=== PATIENT | female | born 1985 | race Caucasian/White ===

== ENCOUNTER 2016-08-29 23:21 | Emergency (ER) | payer MEDICAID ==
[~2016-08-29] VITALS: Ht 160 cm; Wt 110.0 kg
[~2016-08-29 23:21] MED LIST: LEVO100T PO
[2016-08-30 00:47] VITALS: BP 93/45
[2016-08-30 01:01] LABS: ASPARTATE AMINO TRANSFERASE 17 U/L (15-37); BLOOD UREA NITROGEN 17 mg/dL (7-18)
== END 2016-08-30 01:33 | disposition home or self-care (01) ==
LOC: ED 23:59
DX: O26.891 Other specified pregnancy related conditions, first trimester (principal); F17.210 Nicotine dependence, cigarettes, uncomplicated; F12.10 Cannabis abuse, uncomplicated; Z3A.01 Less than 8 weeks gestation of pregnancy; Z90.49 Acquired absence of other specified parts of digestive tract
CPT/HCPCS: 36415; 76801; 80053; 81001; 84702; 85025; 86901; 93005

== ENCOUNTER 2016-09-25 21:08 | Emergency (ER) | payer MEDICAID ==
[~2016-09-25] VITALS: Ht 160 cm; Wt 121.1 kg
[2016-09-25 21:13] VITALS: BP 160/95
== END 2016-09-26 07:08 | disposition home or self-care (01) ==
LOC: ED 09-26 00:45
DX: O26.891 Other specified pregnancy related conditions, first trimester (principal); M79.671 Pain in right foot; Z3A.11 11 weeks gestation of pregnancy
CPT/HCPCS: 99284

== ENCOUNTER 2016-11-18 12:02 | Emergency (ER) | payer MEDICAID ==
[~2016-11-18] VITALS: Ht 157.5 cm; Wt 125.3 kg
[2016-11-18 13:22] LABS: HEMATOCRIT 34.5 % (34.6-47.8); HEMOGLOBIN 11.6 g/dL (11.7-16.4); WHITE BLOOD COUNT 12.5 x10^3/uL (3.4-10)
[2016-11-18 13:39] LABS: ASPARTATE AMINO TRANSFERASE 18 U/L (15-37); BLOOD UREA NITROGEN 8 mg/dL (7-18)
[2016-11-18 15:55] VITALS: BP 135/85
== END 2016-11-18 15:56 | disposition home or self-care (01) ==
LOC: ED 12:37
DX: O26.891 Other specified pregnancy related conditions, first trimester (principal); Z3A.10 10 weeks gestation of pregnancy; R31.29 Other microscopic hematuria; O99.331 Smoking (tobacco) complicating pregnancy, first trimester; F17.200 Nicotine dependence, unspecified, uncomplicated; Z90.49 Acquired absence of other specified parts of digestive tract
CPT/HCPCS: 36415; 76815; 80053; 81001; 85025; 87086; 99285

== ENCOUNTER 2016-11-28 17:56 | Observation (INO) | payer MEDICAID ==
[~2016-11-28] VITALS: Ht 157.5 cm; Wt 126.4 kg
[2016-11-28 18:35] VITALS: BP 132/75
[2016-11-28 19:04] LABS: HEMATOCRIT 34.4 % (34.6-47.8); HEMOGLOBIN 11.5 g/dL (11.7-16.4); WHITE BLOOD COUNT 14.1 x10^3/uL (3.4-10)
[2016-11-28 19:22] LABS: PATH.CAST-FLAG NOT PRESENT; SPERM-FLAG NOT PRESENT; SRC-FLAG NOT PRESENT; XTAL-FLAG NOT PRESENT; YLC-FLAG NOT PRESENT
[2016-11-28] MEDS ORDERED: LACTATED RINGERS 1,000 ML IVBOLUS ONE (20:00)
[2016-11-28] MEDS ORDERED: MORPHINE SULFATE 4 MG/ML, 1ML IVPush PRN (20:00)
[2016-11-28] MEDS ORDERED: morphine SULFATE 10 MG/ML, 1ML ONE (20:01)
== END 2016-11-29 07:25 | disposition home or self-care (01) ==
LOC: LDOP 17:56 → LDIP 11-29
PROVIDERS: ADMIT Obstetrics & Gynecology; ATTEND Obstetrics & Gynecology
DX: O26.892 Other specified pregnancy related conditions, second trimester (principal); R10.9 Unspecified abdominal pain; R31.9 Hematuria, unspecified; Z3A.20 20 weeks gestation of pregnancy
CPT/HCPCS: 36415; 76770; 81001; 85025; 87086; 96361; 96374; G0378; J7120; 96360

== ENCOUNTER 2017-03-30 00:34 | Outpatient (CLI) | payer MEDICAID | END 2017-03-30 00:42 | disposition home or self-care (01) | LOC: LDOP 00:34 | PROVIDERS: ATTEND Obstetrics & Gynecology | DX: Z02.9 Encounter for administrative examinations, unspecified (principal) ==

== ENCOUNTER 2017-06-27 14:14 | Emergency (ER) | payer MEDICAID ==
[~2017-06-27] VITALS: Ht 157.5 cm; Wt 123.6 kg
[2017-06-27 14:15] VITALS: BP 110/75
[2017-06-27 14:46] LABS: BASOPHILS # (AUTO) 0.02 x10^3/uL (0-0.1); BASOPHILS % (AUTO) 0 % (0-1); EOSINOPHILS % (AUTO) 0 % (1-7); LYMPHOCYTES # (AUTO) 0.81 x10^3/uL (1-3.4); LYMPHOCYTES % (AUTO) 7 % (22-44); MD NO; MEAN CORPUSCULAR HEMOGLOBIN 27.4 pg (27.0-34.8); MEAN CORPUSCULAR HGB CONC 32.7 g/dL (32.4-35.8); MEAN CORPUSCULAR VOLUME 83.9 fL (80-100); MEAN PLATELET VOLUME 7.2 fL (7.4-10.4); MONOCYTES # (AUTO) 0.42 x10^3/uL (0.2-0.8); MONOCYTES % (AUTO) 4 % (2-9); NEUTROPHILS % (AUTO) 89 % (42-75); PLATELET COUNT 232 x10^3/uL (130-400); RED CELL DISTRIBUTION WIDTH 14.7 % (9.6-15.2)
[2017-06-27 15:01] LABS: ALBUMIN 3.3 g/dL (3.4-5.0); ANION GAP 6 mmol/L (5-15); CALCIUM 8.7 mg/dL (8.5-10.1); CHLORIDE 109 mmol/L (98-107)
[2017-06-27] MEDS ORDERED: DOXYCYCLINE 100MG TABLET PO ONE (16:00)
[2017-06-27] MEDS ORDERED: DOXYCYCLINE 100MG TABLET ONE (16:06)
== END 2017-06-27 17:25 | disposition home or self-care (01) ==
LOC: ED 16:53
DX: L03.115 Cellulitis of right lower limb (principal); Z90.49 Acquired absence of other specified parts of digestive tract
CPT/HCPCS: 36415; 80048; 82040; 85025; 99284

== ENCOUNTER 2017-12-15 08:07 | Emergency (ER) | payer MEDICAID ==
[~2017-12-15] VITALS: Ht 157.5 cm; Wt 118.5 kg
[2017-12-15] MEDS ORDERED: MULT-6 PO (08:28)
[2017-12-15] MEDS ORDERED: ALBUTEROL/IPRATROPIUM 2.5MG/0.5MG, 3 ML ONE (08:58)
[2017-12-15] MEDS ORDERED: ALBUTEROL/IPRATROPIUM 2.5MG/0.5MG, 3 ML NPPB SCH (09:00)
[2017-12-15] MEDS ORDERED: AZITHROMYCIN 250 MG TABLET PO ONE (09:30)
[2017-12-15] MEDS ORDERED: AZITHROMYCIN 250 MG TABLET ONE (09:38)
[2017-12-15 09:55] LABS: BASOPHILS # (AUTO) 0.02 x10^3/uL (0-0.1); BASOPHILS % (AUTO) 0 % (0-1); EOSINOPHILS # (AUTO) 0.13 x10^3/uL (0-0.4); EOSINOPHILS % (AUTO) 1 % (1-7); LYMPHOCYTES # (AUTO) 1.33 x10^3/uL (1-3.4); LYMPHOCYTES % (AUTO) 8 % (22-44); MD NO; MEAN CORPUSCULAR HGB CONC 34.1 g/dL (32.4-35.8); MEAN CORPUSCULAR VOLUME 85.1 fL (80-100); MEAN PLATELET VOLUME 7.5 fL (7.4-10.4); MONOCYTES # (AUTO) 0.49 x10^3/uL (0.2-0.8); MONOCYTES % (AUTO) 3 % (2-9); NEUTROPHILS # (AUTO) 14.48 x10^3/uL (1.8-6.8); NEUTROPHILS % (AUTO) 88 % (42-75); PLATELET COUNT 265 x10^3/uL (130-400); RED BLOOD COUNT 4.78 x10^6/uL (3.82-5.3); RED CELL DISTRIBUTION WIDTH 14.4 % (9.6-15.2)
[2017-12-15] MEDS ORDERED: ALBUTEROL SULFATE 2.5 MG/3 ML NPPB ONE (10:00)
[2017-12-15 10:05] LABS: ALBUMIN 3.5 g/dL (3.4-5.0); ANION GAP 9 mmol/L (5-15); CALCIUM 8.4 mg/dL (8.5-10.1); CHLORIDE 108 mmol/L (98-107); CREATININE 0.86 mg/dL (0.55-1.02)
[2017-12-15] MEDS ORDERED: CEFTRIAXONE 1,000 MG IM ONE (11:00)
[2017-12-15 11:14] VITALS: BP 139/87
[2017-12-15] MEDS ORDERED: CEFTRIAXONE 1,000 MG ONE (11:15)
== END 2017-12-15 11:24 | disposition home or self-care (01) ==
LOC: ED 11:15
DX: J45.41 Moderate persistent asthma with (acute) exacerbation (principal); J15.9 Unspecified bacterial pneumonia
CPT/HCPCS: 36415; 71046; 80048; 82040; 83605; 84145; 85025; 87040; 93005; 94640; 96372; 99285; J0696; J7512; J7620

== ENCOUNTER 2018-02-14 10:01 | Emergency (ER) | payer SELFPAY ==
[~2018-02-14] VITALS: Ht 157.5 cm; Wt 119.2 kg
[~2018-02-14 10:01] MED LIST changes: +MULT-6 PO
[2018-02-14] MEDS ORDERED: SODIUM CHLORIDE 0.9% 1,000ML IV ONE (11:00)
[2018-02-14 11:14] LABS: MICROSCOPIC INDICATED
[2018-02-14 11:18] LABS: CULTURE INDICATED? NO
[2018-02-14 11:53] LABS: MEAN CORPUSCULAR HEMOGLOBIN 28.9 pg (27.0-34.8); MEAN CORPUSCULAR HGB CONC 33.6 g/dL (32.4-35.8); MEAN CORPUSCULAR VOLUME 85.8 fL (80-100); MEAN PLATELET VOLUME 7.7 fL (7.4-10.4); PLATELET COUNT 275 x10^3/uL (130-400); RED BLOOD COUNT 4.88 x10^6/uL (3.82-5.3); RED CELL DISTRIBUTION WIDTH 14.8 % (9.6-15.2)
[2018-02-14 12:04] LABS: HCG UR SG 1.019 (1.003-1.030)
[2018-02-14 12:06] LABS: ALANINE AMINOTRANSFERASE 22 U/L (12-78); ALBUMIN 3.8 g/dL (3.4-5.0); ANION GAP 8 mmol/L (5-15); CALCIUM 8.2 mg/dL (8.5-10.1); CHLORIDE 109 mmol/L (98-107); CREATININE 0.93 mg/dL (0.55-1.02)
[2018-02-14 12:08] LABS: ALKALINE PHOSPHATASE 72 U/L (45-117); BILIRUBIN,TOTAL 0.7 mg/dL (0.2-1.0); TOTAL PROTEIN 7.2 g/dL (6.4-8.2)
[2018-02-14 12:38] LABS: MD YES
[2018-02-14 12:40] LABS: <PLATELET ESTIMATE> ADEQUATE; <PLT MORPHOLOGY> NORMAL PLT MORPH; <RBC MORPHOLOGY> NORMAL; BAND#(MANUAL) 3.21 x10^3/uL; BANDS%(MANUAL) 15 % (0-7); EOS#(MANUAL) 0.21 x10^3/uL (0.0-0.4); EOS% (MANUAL) 1 % (1-7); LYMPH#(MANUAL) 1.07 x10^3/uL (1-3.4); LYMPHS% (MANUAL) 5 % (22-44); METAMYELOCYTES# (MANUAL) 0.43 x10^3/uL (0-0); METAMYELOCYTES% (MANUAL) 2 % (0-1); MONOS#(MANUAL) 0.64 x10^3/uL (0.3-2.7); MONOS% (MANUAL) 3 % (2-9); SEG#(MANUAL) 15.84 x10^3/uL (1.8-6.8); SEGS% (MANUAL) 74 % (42-75)
[2018-02-14] MEDS ORDERED: AMPICILLIN/SULBACTAM 3 GM in SODIUM CHLORIDE 0.9% 100 ML IV ONE (13:00)
[2018-02-14 13:27] VITALS: BP 123/78
== END 2018-02-14 15:23 | disposition home or self-care (01) ==
LOC: ED 12:39
DX: A41.9 Sepsis, unspecified organism (principal); L03.115 Cellulitis of right lower limb; R31.29 Other microscopic hematuria; J45.909 Unspecified asthma, uncomplicated; F41.1 Generalized anxiety disorder; F17.200 Nicotine dependence, unspecified, uncomplicated; Z90.89 Acquired absence of other organs; Z90.721 Acquired absence of ovaries, unilateral; Z86.39 Personal history of other endocrine, nutritional and metabolic disease; Z91.040 Latex allergy status
CPT/HCPCS: 36415; 74018; 74176; 76770; 80053; 81001; 81025; 83605; 84145; 85025; 87040; 96365; 99291; J0295; J7030

== ENCOUNTER 2018-08-05 17:39 | Emergency (ER) | payer MEDICAID ==
[~2018-08-05] VITALS: Ht 167.6 cm; Wt 122.9 kg
[2018-08-05] MEDS ORDERED: ACETAMINOPHEN 500 MG TABLET PO ONE ×2 (18:00→19:00)
[2018-08-05] MEDS ORDERED: ONDANSETRON ODT 8 MG PO ONE (18:00)
[2018-08-05 18:25] LABS: BASOPHILS # (AUTO) 0.02 x10^3/uL (0-0.1); BASOPHILS % (AUTO) 0 % (0-1); EOSINOPHILS # (AUTO) 0.08 x10^3/uL (0-0.4); EOSINOPHILS % (AUTO) 1 % (1-7); LYMPHOCYTES # (AUTO) 0.93 x10^3/uL (1-3.4); LYMPHOCYTES % (AUTO) 6 % (22-44); MD NO; MEAN CORPUSCULAR HEMOGLOBIN 29.1 pg (27.0-34.8); MEAN CORPUSCULAR VOLUME 85.6 fL (80-100); MEAN PLATELET VOLUME 7.6 fL (7.4-10.4); MONOCYTES # (AUTO) 0.11 x10^3/uL (0.2-0.8); MONOCYTES % (AUTO) 1 % (2-9); NEUTROPHILS # (AUTO) 14.75 x10^3/uL (1.8-6.8); NEUTROPHILS % (AUTO) 93 % (42-75); PLATELET COUNT 290 x10^3/uL (130-400); RED CELL DISTRIBUTION WIDTH 13.9 % (9.6-15.2)
--- NOTE | 2018-08-05 18:25 | NUR ---
EVENT DECORATOR: PT AMBULATORY TO ROOM FROM LOBBY
[2018-08-05 18:29] LABS: ALBUMIN 3.7 g/dL (3.4-5.0); ANION GAP 9 mmol/L (5-15); CALCIUM 8.9 mg/dL (8.5-10.1); CHLORIDE 109 mmol/L (98-107); CREATININE 0.92 mg/dL (0.55-1.02)
--- NOTE | 2018-08-05 18:33 | NUR ---
39 Y/O FEMALE PRESENTS TO ED WITH C/O "I HAVE CELLULITIS ON MY RIGHT LEG. I JUST NOTICED IT A COUPLE HOURS AGO. I GOT BIT BY SOMETHING TWO DAYS AGO." PT RESTING ON GURNEY. PT NOT A VERY GOOD HISTORIAN. PT PLACED ON CONT PULSE OX, NIBP. NO C/O N/V/D, TRAUMA, SYNCOPE
[2018-08-05] MEDS ORDERED: SYNTHROID (18:44)
[2018-08-05] MEDS ORDERED: SODIUM CHLORIDE 0.9% 1,000ML IVBOLUS ONE (19:00)
[2018-08-05] MEDS ORDERED: KETOROLAC 30 MG/1 ML IVPush ONE (19:00)
[2018-08-05] MEDS ORDERED: SODIUM CHLORIDE FLUSH 10ML SYR IVF ONE (19:00)
[2018-08-05] MEDS ORDERED: VANCOMYCIN PER PHARMACY IV ONE (19:00)
[2018-08-05] MEDS ORDERED: VANCOMYCIN 2,000 MG in SODIUM CHLORIDE 0.9% 500 ML IV ONE (19:00)
--- NOTE | 2018-08-05 19:02 | NUR ---
US COMPLETED. BEDSIDE REPORT TO SHAYNE CABALLERO.
[2018-08-05] MEDS ORDERED: KETOROLAC 30 MG/1 ML ONE (19:22)
[2018-08-05] MEDS ORDERED: ONDANSETRON ODT 8 MG ONE (19:22)
[2018-08-05] MEDS ORDERED: ACETAMINOPHEN 500 MG TABLET ONE (19:22)
[2018-08-05 19:50] VITALS: BP 113/61
--- NOTE | 2018-08-05 21:13 | NUR ---
PT RESTING ON GURDENYS AT [facility] INFUSE. VSS AND WILL CONT TO MONITOR.
== END 2018-08-05 21:59 | disposition home or self-care (01) ==
LOC: ED 18:55
DX: A41.9 Sepsis, unspecified organism (principal); L03.115 Cellulitis of right lower limb; J45.909 Unspecified asthma, uncomplicated; Z90.49 Acquired absence of other specified parts of digestive tract
CPT/HCPCS: 36415; 80048; 82040; 83605; 85025; 87040; 87147; 93971; 96365; 96366; 96375; 99284; J1885; J3370; J7030; J7040; 87181

== ENCOUNTER 2018-09-22 13:14 | Emergency (ER) | payer MEDICAID ==
[~2018-09-22] VITALS: Ht 157.5 cm; Wt 124.0 kg
[~2018-09-22 13:14] MED LIST changes: +SYNTHROID
[2018-09-22 13:33] VITALS: BP 115/70
--- NOTE | 2018-09-22 13:37 | NUR ---
Pt presents to ED with c/o RLE erythema and edema beginning "this morning I noticed." Pt states past medical history of 4 years of having cellulitis in RLE. Pt denies MRSA, VRE, ESBL, or other antibiotic resistant microorganism infection in RLE. Pt denies pain. CMS intact. RLE hot to touch, red, and swollen. Pt denies cp, sob, n/v/d, trauma, or syncope. NADN. Pt connected to NIBP cuff and continous pulse ox. Call light within reach. No needs expressed at this time.
[2018-09-22 14:17] LABS: ALBUMIN 3.4 g/dL (3.4-5.0); ANION GAP 5 mmol/L (5-15); BASOPHILS # (AUTO) 0.02 x10^3/uL (0-0.1); BASOPHILS % (AUTO) 0 % (0-1); CALCIUM 8.6 mg/dL (8.5-10.1); CHLORIDE 108 mmol/L (98-107); EOSINOPHILS # (AUTO) 0.01 x10^3/uL (0-0.4); EOSINOPHILS % (AUTO) 0 % (1-7); LYMPHOCYTES # (AUTO) 0.67 x10^3/uL (1-3.4); LYMPHOCYTES % (AUTO) 5 % (22-44); MD NO; MEAN CORPUSCULAR HEMOGLOBIN 29.1 pg (27.0-34.8); MEAN CORPUSCULAR HGB CONC 32.5 g/dL (32.4-35.8); MEAN CORPUSCULAR VOLUME 89.3 fL (80-100); MEAN PLATELET VOLUME 7.6 fL (7.4-10.4); MONOCYTES # (AUTO) 0.28 x10^3/uL (0.2-0.8); MONOCYTES % (AUTO) 2 % (2-9); NEUTROPHILS # (AUTO) 13.44 x10^3/uL (1.8-6.8); NEUTROPHILS % (AUTO) 93 % (42-75); PLATELET COUNT 226 x10^3/uL (130-400); RED BLOOD COUNT 4.45 x10^6/uL (3.82-5.3); RED CELL DISTRIBUTION WIDTH 14.9 % (9.6-15.2)
--- NOTE | 2018-09-22 14:52 | NUR ---
Patient given discharge instructions and they have confirmed that they understand the instructions. Patient ambulatory with steady gait. Pt left with all personal belongings, d/c paperwork, and prescriptions. Pt encouraged to return to ED if symptoms worsen or conditions change.
== END 2018-09-22 14:55 | disposition home or self-care (01) ==
LOC: ED 14:08
DX: L03.115 Cellulitis of right lower limb (principal); J45.909 Unspecified asthma, uncomplicated
CPT/HCPCS: 36415; 80048; 82040; 85025; 99283

== ENCOUNTER 2019-06-18 06:01 | Emergency (ER) | payer MEDICAID ==
[~2019-06-18] VITALS: Ht 157.5 cm; Wt 118.0 kg
--- NOTE | 2019-06-18 06:10 | NUR ---
Pt arrives via [facility] for allergic reaction from naproxen. Intake around midnight. Pt reports she has taken naproxen before without problems. Pt noted to have facial and lip swelling. Mild hives noted to face and back. 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 No airway compromise noted. Pt reports hx of allergies but not dx'd. Pt reports she never went to see an internet manager. Pt in gown and on pulse ox. Pt on room air.
[2019-06-18] MEDS ORDERED: EPINEPHRINE 1 MG/ML, 1ML ONE (06:26)
[2019-06-18] MEDS ORDERED: DEXAMETHASONE 4 MG TABLET ONE (06:26)
[2019-06-18] MEDS ORDERED: DEXAMETHASONE 4 MG TABLET PO ONE (06:30)
[2019-06-18] MEDS ORDERED: EPINEPHRINE 1 MG/ML, 1ML IM ONE (06:30)
--- NOTE | 2019-06-18 06:33 | NUR ---
Pt medicated per [facility].
--- NOTE | 2019-06-18 06:56 | NUR ---
RECEIVED REPORT FROM [facility]. PT SLEEPING ON GURNEY, RESPONDS APPROP TO STAFF, NO RESP DISTRESS, RESTING COMFORTABLY AT THIS TIME, COMFORT MEASURES PROVIDED, CALL LIGHT WITHIN REACH.
[2019-06-18 07:01] VITALS: BP 118/70
--- NOTE | 2019-06-18 07:13 | NUR ---
Patient given discharge instructions and Rx, they have confirmed that they understand the instructions. Patient ambulatory with steady gait.
== END 2019-06-18 07:56 ==
LOC: ED 07:26
DX: T78.3XXA Angioneurotic edema, initial encounter (principal)
CPT/HCPCS: 96372; 99283; J0171